=== PATIENT | female | born 1995 | race Hispanic/Latino ===

== ENCOUNTER 2021-09-18 11:57 | Emergency (ER) | payer OTHER, SELFPAY ==
--- NOTE | 2021-09-18 13:06 | EDPHYS ---
Physician Documentation [facility] Name: Odalys Rizo Age: 26 yrs Sex: Female : 1995 Arrival Date: 09/18/2021 Time: 12:02 Bed Waiting Private MD: ED Physician Kip Merlos HPI: 09/18 12:49 This 26 yrs old Female presents to ER via Unassigned with complaints of r/o cp covid. 12:50 The patient or guardian reports Patient reports close contact with multiple family cp members who tested positive for COVID-19. Patient requesting COVID-19 test. Reports slight cough, sneezing. 12:50 Associated signs and symptoms: Pertinent negatives: diarrhea, fever, sore throat, cp vomiting. 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 - Social history:: Smoking status: Patient denies any tobacco usage or history of. ROS: 12:49 Respiratory: Positive for cough, "sounds productive", Negative for shortness of breath, cp wheezing. 12:49 Abdomen/GI: Negative for abdominal pain, nausea, vomiting, and diarrhea. Exam: 12:53 Constitutional: The patient appears in no acute distress, alert, awake, comfortable, cp non-toxic, well developed, well nourished. 12:53 Head/Face: Normocephalic, atraumatic. cp 12:53 Eyes: Periorbital structures: appear normal, Conjunctiva: normal, no exudate, no injection, Sclera: no appreciated abnormality, Lids and lashes: appear normal, bilaterally. 12:53 ENT: External ear(s): are unremarkable, Ear canal(s): are normal, clear, TM's: bulging, is not appreciated, bilaterally, dullness, bilaterally, erythema, is not appreciated, bilaterally, Nose: is normal, Mouth: Lips: moist, Oral mucosa: pink and intact, moist, Posterior pharynx: Airway: no evidence of obstruction, patent, Tonsils: are normal in appearance, erythema, is not appreciated, exudate, is not appreciated. 12:53 Neck: Lymph nodes: no appreciated lymphadenopathy. 12:53 Chest/axilla: Inspection: normal. 12:53 Cardiovascular: Rate: normal, Rhythm: regular. 12:53 Respiratory: the patient does not display signs of respiratory distress, Respirations: normal, no use of accessory muscles, no retractions, labored breathing, is not present, Breath sounds: are clear throughout, no decreased breath sounds, no stridor, no wheezing. 12:53 Abdomen/GI: Exam negative for discomfort, distension, guarding, Inspection: abdomen appears normal. Vital Signs: 13:03 BP 127 / 72; Pulse 76; Resp 18; Temp 98.6(O); Pulse Ox 98% on R/A; Weight 71.21 kg; argueta Height 5 ft. 2 in. (157.48 cm); 13:03 Body Mass Index 28.72 (71.21 kg, 157.48 cm) argueta MDM: 13:05 Patient medically screened. cp 13:05 Data reviewed: vital signs, nurses notes. cp 13:05 Differential diagnosis: bronchitis, flu, URI, COVID-19, allergies. Counseling: I had a cp detailed discussion with the patient and/or guardian regarding: the historical points, exam findings, and any diagnostic results supporting the discharge/admit diagnosis, to return to the emergency department if symptoms worsen or persist or if there are any questions or concerns that arise at home. ED course: VSS. Recommend quarantine with family. F/u with pcp worsening symptoms. Symptomatic treatment with OTC meds. 09/18 12:15 Order name: COVID-19 (Coronavirus) Document "Date of Onset" if Symptomatic cp Administered Medications: No medications were administered Disposition: 13:15 Chart complete. cp Disposition Summary: 09/18/21 13:05 Discharge Ordered Location: Home cp Problem: new cp Symptoms: are unchanged cp Condition: Stable cp Diagnosis - Encounter for screening, unspecified - COVID-19 test cp Followup: cp - With: Private Physician - When: 2 - 3 days - Reason: Worsening of condition Discharge Instructions: - Discharge Summary Sheet cp - COVID-19: What Your Test Results Mean - [facility] cp - COVID-19 Frequently Asked Questions cp - 3 Devine Steps to Take While Waiting for Your COVID-19 Test Result - CDC cp - COVID-19: Quarantine vs. Isolation - CDC cp Forms: - Medication Reconciliation Form cp - Thank You Letter cp - Antibiotic Education cp - Prescription Opioid Use cp Addendum: 09/20/2021 09:03 Co-signature as Attending Physician, Kip Merlos MD I agree with the assessment and c argueta plan of care. Signatures: Dispatcher [employer] EDKip Cat MD MD cha Page, Corey, PA PA julia Bose-Whitney Mercado RN RN argueta
--- NOTE | 2021-09-18 13:06 | ER ---
Nurse's Notes [facility] Name: Odalys Rizo Age: 26 yrs Sex: Female : 1995 Arrival Date: 09/18/2021 Time: 12:02 Bed Waiting Private MD: Diagnosis: Encounter for screening, [id number] test Presentation: 09/18 13:03 Chief complaint: Patient states: cough, fever, congestion x2days. family member +for argueta covid. Coronavirus screen: Vaccine status: Patient reports being unvaccinated. Ebola Screen: Patient reports travel to Ebola-affected area in the 21 days before illness onset. Patient reports having traveled to: [place]. Initial Sepsis Screen: Does the patient meet any 2 criteria? No. Patient's initial sepsis screen is negative. Does the patient have a suspected source of infection? No. Patient's initial sepsis screen is negative. Risk Assessment: Do you want to hurt yourself or someone else? Patient reports no desire to harm self or others. Onset of symptoms was September 16, 2021. 13:03 Method Of Arrival: Ambulatory argueta 13:03 Acuity: LEEANN 4 argueta Triage Assessment: 13:04 General: Appears in no apparent distress. Behavior is calm, cooperative. Pain: Denies argueta pain. 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 - Social history:: Smoking status: Patient denies any tobacco usage or history of. Screenin:05 Abuse screen: Denies threats or abuse. Denies injuries from another. Nutritional argueta screening: No deficits noted. Tuberculosis screening: No symptoms or risk factors identified. Fall Risk None identified. Assessment: 13:05 General: Appears. Neuro: Reports headache. Respiratory: Reports cough that is. argueta Vital Signs: 13:03 BP 127 / 72; Pulse 76; Resp 18; Temp 98.6(O); Pulse Ox 98% on R/A; Weight 71.21 kg; argueta Height 5 ft. 2 in. (157.48 cm); 13:03 Body Mass Index 28.72 (71.21 kg, 157.48 cm) argueta ED Course: 12:02 Patient arrived in ED. as 12:14 Kip Juarez PA is PHCP. cp 12:14 Kip Merlos MD is Attending Physician. cp 13:04 Triage completed. argueta 13:04 Arm band placed on left wrist. argueta 13:05 Patient has correct armband on for positive identification. argueta 13:05 No provider procedures requiring assistance completed. argueta 13:06 Patient did not have IV access during this emergency room visit. argueta Administered Medications: No medications were administered Outcome: 13:05 Discharge ordered by . cp 13:06 Discharged to home ambulatory. argueta 13:06 Condition: good 13:06 Discharge instructions given to patient. 13:06 Patient left the ED. argueta Addendum: 09/21/2021 07:36 Addendum: COVID-19 Result: Positive result giiven to ED physician to notify pt. e b Physician was able to contact pt and pt was notified of positive COVID-19 swab result. Physician answered pt questions. Signatures: Yvette Whitlock Corey, PA PA cp Botello, Elizabeth eb Au-Stager, Heather RN RN argueta
[2021-09-18 13:16] VITALS: BP 127/72; TEMP 98.6; O2SAT 98
== END 2021-09-18 13:06 | disposition home or self-care (01) ==
LOC: ER 11:57
DX: U07.1 COVID-19 (principal); R05.9 Cough, unspecified; R06.7 Sneezing
CPT/HCPCS: 99281; U0002